=== PATIENT | female | born 1990 | race Caucasian/White ===

== ENCOUNTER 2019-11-22 08:41 | Emergency (ER) | payer SELFPAY ==
[~2019-11-22] VITALS: Ht 172.7 cm; Wt 73.9 kg
[2019-11-22 09:02] VITALS: BP 105/60
--- NOTE | 2019-11-22 09:19 | PHYS DOC ---
Past History Past Medical History: Constipation Past Surgical History: Tubal ligation, Other Additional Past Surgical Histo: skin graft Alcohol Use: None Drug Use: None Adult General Chief Complaint Chief Complaint: CONSTIPATION HPI HPI Patient is a 28 year old F who presents with constipation. She states that she has not had a bowel movement in the last 2 weeks. She has occasional sharp abdominal pain. She had mild nausea this morning without vomiting. She continues to be able to eat and drink however she has had decreased intake of food over the past 24 hours. She has had one similar episode about 8 years ago. She does tend to have less frequent bowel movements than others. She has no other associated symptoms. She has no exasperating or relieving factors. Review of Systems Review of Systems Constitutional: Denies fever or chills [] Eyes: Denies change in visual acuity, redness, or eye pain [] HENT: Denies nasal congestion or sore throat [] Respiratory: Denies cough or shortness of breath [] Cardiovascular: No additional information not addressed in HPI [] GI: Negative except history of present illness : Denies dysuria or hematuria [] Musculoskeletal: Denies back pain or joint pain [] Integument: Denies rash or skin lesions [] Neurologic: Denies headache, focal weakness or sensory changes [] Endocrine: Denies polyuria or polydipsia [] All other systems were reviewed and found to be within normal limits, except as documented in this note. Family History Family History No pertinent family medical history was reported Current Medications Current Medications Current medications were reviewed Allergies Allergies Allergies Coded Allergies Type Severity Reaction Last Updated Verified No Known Drug Allergies 11/22/19 No Physical Exam Physical Exam Constitutional: Well developed, well nourished, no acute distress, non-toxic appearance. [] HENT: Normocephalic, atraumatic, Eyes: PERRLA, EOMI, conjunctiva normal, no discharge. [] Neck: Normal range of motion, no tenderness, supple, no stridor. [] Cardiovascular:Heart rate regular rhythm, Lungs & Thorax: Bilateral breath sounds clear to auscultation [] Abdomen: Bowel sounds normal, soft, no tenderness, no masses, no pulsatile masses. [] Mild distention was noted Skin: Warm, dry, no erythema, no rash. [] Extremities: No tenderness, no cyanosis, no clubbing, ROM intact, no edema. [] Neurologic: Alert and oriented X 3, normal motor function, normal sensory function, no focal deficits noted. [] Psychologic: Affect normal, judgement normal, mood normal. [] Current Patient Data Vital Signs Vital Signs Date Time Temp Pulse Resp B/P (MAP) Pulse Ox O2 Delivery O2 Flow Rate FiO2 11/22/19 09:02 97.8 62 18 100 Room Air EKG EKG [] Radiology/Procedures Radiology/Procedures [] Course & Med Decision Making Course & Med Decision Making Pertinent Labs and Imaging studies reviewed. (See chart for details) [] Dragon Disclaimer Dragon Disclaimer This electronic medical record was generated, in whole or in part, using a voice recognition dictation system. Departure Departure: Impression: Primary Impression: Constipation Disposition: HOME, SELF-CARE Condition: STABLE Referrals: PCPLAURA (PCP) Patient Instructions: Constipation, Adult Additional Instructions: [place] was seen in the emergency department for constipation. No emergency medical condition was found on history physical exam. She is advised to increase her water intake and start MiraLAX hourly 3-4 hours. If she still is not having good bowel movements she was encouraged to consider trying magnesium citrate. She was advised to return to the emergency room if she develops new or worsening symptoms. She was advised follow-up with her primary care doctor as needed for further management. Problem Qualifiers Primary Impression: Constipation Constipation type: slow transit constipation Qualified Codes: K59.01 - Slow transit constipation TABITHA GRAMAJO MD Nov 22, 2019 09:19
== END 2019-11-22 09:24 | disposition home or self-care (01) ==
LOC: ER 08:41
DX: K59.00 Constipation, unspecified (principal); Z98.51 Tubal ligation status
CPT/HCPCS: 99281

== ENCOUNTER 2019-12-08 07:53 | Emergency (ER) | payer OTHER ==
[~2019-12-08] VITALS: Ht 172.7 cm; Wt 72.0 kg
--- NOTE | 2019-12-08 08:25 | PHYS DOC ---
Past History Past Medical History: Constipation Past Surgical History: Tubal ligation, Other Additional Past Surgical Histo: skin graft Alcohol Use: None Drug Use: None Adult General Chief Complaint Chief Complaint: DENTAL PROBLEM HPI HPI Patient is a 28-year-old female who presented to ER today for evaluation of left-sided lower dental pain off and on since October of last year. Patient said about 5 days ago she started having more pain. Patient went to see her dentist yesterday who prescribed her with tramadol, amoxicillin 500 mg 3 times a day. Patient took 3 doses of the amoxicillin already, she woke up this morning with more pain and the left-sided her jaw became more swollen so she came here for evaluation. Patient had been able to open and close her mouth, able to swallow without a problem. Patient denies any fever. All other ROS is negative unless otherwise noted in HPI Review of Systems Review of Systems See above Allergies Allergies Allergies Coded Allergies Type Severity Reaction Last Updated Verified No Known Drug Allergies 11/22/19 No Physical Exam Physical Exam See above Constitutional: Well developed, well nourished, no acute distress, non-toxic appearance. [] HENT: Normocephalic, atraumatic, bilateral external ears normal, oropharynx moist, no oral exudates, nose normal. Left side lower jaw swelling, tender. No trismus. Eyes: PERRLA, EOMI, conjunctiva normal, no discharge. [] Neck: Normal range of motion, no tenderness, supple, no stridor. [] Cardiovascular:Heart rate regular rhythm, no murmur [] Lungs & Thorax: Bilateral breath sounds clear to auscultation [] Abdomen: Bowel sounds normal, soft, no tenderness, no masses, no pulsatile masses. [] Skin: Warm, dry, no erythema, no rash. [] Back: No tenderness, no CVA tenderness. [] Extremities: No tenderness, no cyanosis, no clubbing, ROM intact, no edema. [] Neurologic: Alert and oriented X 3, normal motor function, normal sensory function, no focal deficits noted. [] Psychologic: Affect normal, judgement normal, mood normal. [] Current Patient Data Vital Signs Vital Signs Date Time Temp Pulse Resp B/P (MAP) Pulse Ox O2 Delivery O2 Flow Rate FiO2 12/08/19 08:14 99.1 113 18 118/63 (81) 99 Room Air EKG EKG [] Radiology/Procedures Radiology/Procedures [] Course & Med Decision Making Course & Med Decision Making Pertinent Labs and Imaging studies reviewed. (See chart for details) Patient was given medication in the ER, she felt much better. Patient will be discharged home, she will continue to take her antibiotic, she was instructed to follow with her dentist on Wednesday. Dragon Disclaimer Dragon Disclaimer This electronic medical record was generated, in whole or in part, using a voice recognition dictation system. Departure Departure: Impression: Primary Impression: Abscess, dental Disposition: HOME, SELF-CARE Condition: STABLE Referrals: PCP,NO (PCP) FOLLOW UP WITH YOUR DENTIST FOR REEVALUATION ON WEDNESDAY. CONTINUE TAKING YOUR ANTIBIOTIC PRESCRIBED. Patient Instructions: Dental Abscess Additional Instructions: Thank you for visiting our Emergency Department. We appreciate you trusting us with your care. If any additional problems come up don't hesitate to return to visit us. Please follow up with your primary care provider so they can plan additional care if needed and know about the problem that you had. If symptoms worsen come back to the Emergency Department. Any concerning symptoms that start such as chest pain, shortness of air, weakness or numbness on one side of the body, running high fevers or any other concerning symptoms return to the ER. Scripts Ibuprofen (Ibu) 800 Mg Tablet 1 TAB PO Q8HRS for PAIN for 7 Days, #30 TAB 0 Refills Prov: TABITHA HOWARD DO 12/08/19 Prednisone (PREDNISONE) 20 Mg Tablet 1 TAB PO DAILY for SWELLING, #7 TAB Prov: TABITHA HOWARD DO 12/08/19 TABITHA HOWARD DO Dec 08, 2019 08:25
[2019-12-08] MEDS ORDERED: methylPREDNISolone SOD SUCC PF 125 MG/2 ML VIAL. IV ONE (08:30)
[2019-12-08] MEDS ORDERED: PIPERACILLIN/TAZOBACTAM 3.375 GM in IV NORMAL SALINE 50ML 50 ML IV ONE (08:30)
[2019-12-08] MEDS ORDERED: KETOROLAC 30 MG/ML VIAL. IVP ONE (08:30)
[2019-12-08] MEDS ORDERED: IV NORMAL SALINE 1,000ML 1,000 ML IV ONE (08:30)
[2019-12-08] MEDS ORDERED: diphenhydrAMINE 50 MG/ML VIAL IVP ONE (08:30)
[2019-12-08] MEDS ORDERED: IV NORMAL SALINE 50ML 50 ML ONE (08:38)
[2019-12-08] MEDS ORDERED: PIPERACILLIN/TAZOBACTAM 3.375 GM VIAL IV ONE (08:38)
[2019-12-08] MEDS ORDERED: ONDANSETRON PF 4 MG/2 ML VIAL. IVP ONE (08:45)
[2019-12-08 10:20] VITALS: BP 97/49
[2019-12-08] MEDS ORDERED: PRED20TA PO (10:27)
[2019-12-08] MEDS ORDERED: IBUP-577 PO (10:27)
== END 2019-12-08 10:34 | disposition home or self-care (01) ==
LOC: ER 07:53
DX: K04.7 Periapical abscess without sinus (principal)
CPT/HCPCS: 96365; 96366; 96375; 99284; J1200; J1885; J2405; J2543; J2930; J7030

== ENCOUNTER 2020-11-14 12:53 | Emergency (ER) | payer OTHER ==
[~2020-11-14] VITALS: Ht 172.7 cm; Wt 83.2 kg
[~2020-11-14 12:53] MED LIST: IBUP-577 PO; PRED20TA PO
--- NOTE | 2020-11-14 13:26 | PHYS DOC ---
Past History Past Medical History: Constipation Past Surgical History: Tubal ligation, Other Additional Past Surgical Histo: skin graft Alcohol Use: None Drug Use: None General Adult EDM: Chief Complaint: RIGHT THIGH TINGLING HPI: HPI: 29-year-old female presenting the emergency department today with tingling in the right side that started 2 hours ago. Last known well 2 hours ago. She intermittently has had tingling sensation in her left thigh and right thigh over the past few months. Today will she was working she felt this and came in for evaluation. She denies any muscular weakness. She denies slurred speech or facial drooping. She denies diplopia. She denies chest pain shortness of breath or abdominal pain. No alleviating or exacerbating factors Review of systems negative for abdominal pain vomiting fevers chills. All other review of systems negative. ED course: 29-year-old female presenting with right-sided thigh tingling. Code stroke called at the time of evaluation. Head CT along with head and neck angiography ordered. I spoke with Dr. Preciado our stroke neurologist who recommends not giving TPA. Low NIH stroke scale. Patient symptoms are unlikely to be from an ischemic stroke. I had a long risk-benefit analysis with the patient and discussion using shared decision making about the giving of TPA. I sat down with the patient with a risk/benefits with the pt and documented the shared decision making on AMA form. I spoke with Dr. Preciado about the patient. He recommends seeing the patient in his clinic. He has an opening. Blood works unremarkable head CT negative. CT angiogram negative. We will discharge the patient to see our neurologist in clinic immediately after discharge. Dr. Preciado is awaiting the pt in clinic. NIH Stroke Scale: Level of consciousness 0 Level of consciousness questions 0 Best gaze 0 Visual satna 0 Facial palsy 0 Left motor arm 0 Right motor arm 0 Left motor leg 0 Right motor leg 0 Limb ataxia 0 Sensory 1 Best language 0 Dysarthria 0 Extension and inattention 0 Total score: 1 Non disabling Allergies: Allergies: Allergies Coded Allergies Type Severity Reaction Last Updated Verified No Known Drug Allergies 11/22/19 No Physical Exam: PE: Constitutional: Well developed, well nourished, no acute distress, non-toxic appearance. [] HENT: Normocephalic, atraumatic, bilateral external ears normal, oropharynx moist, no oral exudates, nose normal. [] Eyes: PERRLA, EOMI, conjunctiva normal, no discharge. [] Neck: Normal range of motion, no tenderness, supple, no stridor. [] Cardiovascular:Heart rate regular rhythm, no murmur [] Lungs & Thorax: Bilateral breath sounds clear to auscultation [] Abdomen: Bowel sounds normal, soft, no tenderness, no masses, no pulsatile masses. [] Skin: Warm, dry, no erythema, no rash. [] Back: No tenderness, no CVA tenderness. [] Extremities: No tenderness, no cyanosis, no clubbing, ROM intact, no edema. [] Neurologic: Mental status: Awake oriented and alert x3 Cranial nerves: Extraocular movements intact, eyebrows fabiana bilaterally, smile symmetric, uvula elevation nl, shoulder shrug intact bilaterally, tongue protrusion normal DTRs: 2+ Sensation: Patient can feel equally in the upper extremities. The lower extremities the patient has sensation throughout including the places where she feels the tingling but it feels different in the right thigh than in the left. Strength: 5/5 in upper and lower extremities bilaterally No pronator drift. Normal [id number]. Psychologic: Affect normal, judgement normal, mood normal. [] EKG: EKG: [] Radiology/Procedures: Radiology/Procedures: [] Heart Score: Risk Factors: Risk Factors: DM, Current or recent (<one month) smoker, HTN, HLP, family history of CAD, obesity. Risk Scores: Score 0 - 3: 2.5% MACE over next 6 weeks - Discharge Home Score 4 - 6: 20.3% MACE over next 6 weeks - Admit for Clinical Observation Score 7 - 10: 72.7% MACE over next 6 weeks - Early Invasive Strategies Course & Med Decision Making: Course & Med Decision Making Pertinent Labs and Imaging studies reviewed. (See chart for details) [] Dragon Disclaimer: Dragon Disclaimer: This electronic medical record was generated, in whole or in part, using a voice recognition dictation system. Departure Departure: Impression: Primary Impression: Numbness and tingling of leg Disposition: 01 DC HOME SELF CARE/HOMELESS Condition: STABLE Referrals: PCP,NO (PCP) DAY PRECIADO MD, AUSTIN L MD Nov 14, 2020 13:26
[2020-11-14] MEDS ORDERED: IOHEXOL 350 MG/ML 100 ML VIAL. IV ONE (13:30)
--- NOTE | 2020-11-14 13:36 | RAD ---
PQRS Compliance Statement: One or more of the following individualized dose reduction techniques were utilized for this examinat ion: 1. Automated exposure control 2. Adjustment of the mA and/or kV according to patient size 3. Use of iterative reconstruction technique CT head without contrast 11/14/2020 1:27 PM INDICATION: Leg numbness COMPARISON: None available TECHNIQUE: Multiple axial CT images of the head were obtained from skull base through the vertex with out intravenous contrast. FINDINGS: Head: Ventricles, sulci and basal cisterns are within normal limits. There is no hydrocephalus. Stratton-white matter differentiation is normal. There is no acute intracranial hemorrhage. There is no mass, mass e ffect or midline shift. Posterior fossa is normal in appearance. Visualized portions of the orbits are normal. Paranasal sinuses are well aerated. Mastoid air cells a re well aerated. Scalp and calvaria are normal. IMPRESSION: No acute intracranial hemorrhage. FOR INTERNAL CODING PURPOSES Critical result: Findings discussed with Dr. Booth at 11/14/2020 1:33 PM. RESULT CODE: (C) Electronically signed by: Maddie Lockhart MD (11/14/2020 1:34 PM) [id number]
[2020-11-14] MEDS ORDERED: CONTRAST GIVEN. MC PRN (13:45)
[2020-11-14 13:55] LABS: HEMATOCRIT 35.6 % (36.0-47.0); HEMOGLOBIN 11.6 g/dL (12.0-15.5); RED BLOOD COUNT 4.4 x10^6/uL (3.50-5.40); RED CELL DISTRIBUTION WIDTH 13.9 % (11.5-14.5); WHITE BLOOD COUNT 5.6 x10^3/uL (4.0-11.0)
[2020-11-14 14:16] LABS: CALCIUM 8.6 mg/dL (8.5-10.1); CREATININE 0.8 mg/dL (0.6-1.0); GFR 83.7
[2020-11-14 14:22] LABS: PREG TEST PT QUAL NEGATIVE (NEG)
[2020-11-14 14:28] LABS: POTASSIUM 3.3 mmol/L (3.5-5.1)
--- NOTE | 2020-11-14 14:29 | RAD ---
EXAM: CTA HEAD AND NECK W/WO CONTRAST DATE: 11/14/2020 1:38 PM INDICATION: leg numbness TECHNIQUE: CTA angiogram of the head and neck was obtained after IV bolus administration of 100 cc of Omnipaque 350. The images were sent to workstation and multiplanar reconstructions were obtained. M ultiplanar reconstruction images to include MIP and 3-D reconstruction images are submitted. One or more of the following dose reduction techniques were utilized: Automated exposure control (AEC ), Adjustment of mA and/or kV according to patient size, Use of iterative reconstruction technique mahoney ch as ASiR, CT scan done according to ALARA and image gently/image wisely COMPARISON: Noncontrast CT head done previously today. FINDINGS: CTA Head: The visualized distal internal carotid arteries, anterior and middle cerebral arteries are patent and normal caliber. The distal vertebral arteries, basilar artery, and posterior cerebral arteries are p atent and normal caliber. No aneurysm or arteriovenous malformation is seen. CTA Neck: Right carotid: The right common carotid artery is patent and normal caliber. The carotid bifurcation is normal. No stenosis of the right internal carotid artery per NASCET criteria. The right external c arotid artery is patent. Left carotid: The left common carotid artery is patent and normal caliber. The carotid bifurcation is normal. No stenosis of the left internal carotid artery per NASCET criteria. The left external carot id artery is patent. Right vertebral: The right vertebral artery is patent and normal caliber. Left vertebral: The left vertebral artery is patent and normal caliber. The visualized portions of the aortic arch are normal. The origins of the brachiocephalic and subclav caio arteries are normal. No cervical lymphadenopathy. The thyroid gland is normal. The parotid and submandibular glands are no rmal. The visualized aerodigestive tract is unremarkable. The cervical spine is normal. The visualized portions of the lungs are clear. IMPRESSION: 1. No intracranial large vessel occlusion. 2. No stenosis or dissection of the cervical carotid or vertebral arteries. PQRS Compliance Statement - Stenosis calculations for CT, MR and conventional angiography are based u alex measurement of the distal ICA diameter in accordance with the NASCET methodology. Electronically signed by: Evans Ly MD (11/14/2020 2:27 PM) [id number]
--- NOTE | 2020-11-14 14:30 | RAD ---
EXAM: CHEST 1 VIEW History: Covid COMPARISON: None available. TECHNIQUE: Single portable radiograph of the chest FINDINGS: The cardiac silhouette is unremarkable. The lungs are clear bilaterally. The costophrenic sulci are clear and well demarcated. IMPRESSION: No radiographic evidence of an acute cardiopulmonary process. Electronically signed by: Sb Menard MD (11/14/2020 2:27 PM) [id number]
[2020-11-14 16:57] VITALS: BP 134/68
== END 2020-11-14 14:46 | disposition home or self-care (01) ==
LOC: ER 12:53
DX: R20.2 Paresthesia of skin (principal)
CPT/HCPCS: 36415; 70450; 70496; 70498; 71045; 80048; 82947; 84484; 84703; 85027; 85610; 85730; 99285; Q9967

== ENCOUNTER 2021-04-03 13:46 | Emergency (ER) | payer OTHER ==
[~2021-04-03] VITALS: Ht 172.7 cm; Wt 81.2 kg
--- NOTE | 2021-04-03 14:27 | PHYS DOC ---
Past History Past Medical History: No Pertinent History Past Surgical History: Tubal ligation, Other Additional Past Surgical Histo: skin graft Alcohol Use: None Drug Use: None Adult General Chief Complaint Chief Complaint: ABDOMINAL PAIN HPI HPI Patient is a 30-year-old female presenting via POV for abdominal pain. Onset was x4 days ago without any known inciting event, ingestion or trauma. Nothing known makes better, certain positional movements and palpating right adnexal area make worse. Patient reports dull cramping pain that does not migrate, is currently 6/10 in severity. She is , has history of bilateral tubal ligation during of her last child, all children are healthy without significant medical issues. No fever, recent illness, chest pain, shortness of breath, dysuria or other concerning symptoms Review of Systems Review of Systems Fourteen body systems of review of systems have been reviewed. See HPI for pertinent positives and negative responses, other curiel all other systems are negative, non-pertinent or non-contributory Allergies Allergies Allergies Coded Allergies Type Severity Reaction Last Updated Verified No Known Drug Allergies 11/22/19 No Physical Exam Physical Exam Constitutional: Well developed, well nourished, no acute distress, non-toxic appearance. HENT: Normocephalic, atraumatic, bilateral external ears normal, oropharynx moist, no oral exudates, nose normal. Eyes: PERRLA, EOMI, conjunctiva normal, no discharge. Neck: Normal range of motion, no tenderness, supple, no stridor. Cardiovascular: Heart rate regular, sinus rhythm, no murmurs rubs or gallops Lungs & Thorax: Bilateral breath sounds clear to auscultation Abdomen: Bowel sounds normal, soft, no tenderness, no masses, no pulsatile masses. Nonsurgical abdomen, no peritoneal signs Skin: Warm, dry, no erythema, no rash. Back: No tenderness, no CVA tenderness. Extremities: No tenderness, no cyanosis, no clubbing, ROM intact, no edema. Neurologic: Alert and oriented X 3, grossly normal motor & sensory function, no focal deficits noted. Psychologic: Affect normal, judgement normal, mood normal. Current Patient Data Vital Signs Vital Signs Date Time Temp Pulse Resp B/P (MAP) Pulse Ox O2 Delivery O2 Flow Rate FiO2 04/03/21 13:57 98.1 85 16 126/84 (98) 98 Room Air Lab Results Laboratory Tests Test 04/03/21 14:09 04/03/21 14:15 Urine Collection Type Unknown Urine Color Yellow Urine Clarity Hazy Urine pH 5.5 Urine Specific [place] >=1.030 Urine Protein Neg Urine Glucose (UA) Neg mg/dL Urine Ketones (Stick) Neg mg/dL Urine Blood Mod Urine Nitrite Neg Urine Bilirubin Neg Urine Urobilinogen Dipstick 0.2 mg/dL Urine Leukocyte Esterase Neg Urine RBC 1-2 /HPF Urine WBC 1-4 /HPF Urine Squamous Epithelial Cells Few /LPF Urine Bacteria Few /HPF Bedside Urine HCG, Qualitative hcg negative EKG EKG [] Radiology/Procedures Radiology/Procedures Pelvic ultrasound dated 04/03/2021. No comparison available. CLINICAL INDICATION: Pain. FINDINGS: Transabdominal and transvaginal imaging performed. Uterus measures 10.0 x 5.4 x 5.5 cm. No focal uterine mass. The endometrium is normal thickness and 1.1 cm. Right ovary measures 3.8 x 3.2 x 1.9 cm. Left ovary measures 2.8 x 2.4 x 1.9 cm. Normal color flow to both ovaries. No adnexal mass or free fluid. IMPRESSION: Negative pelvic ultrasound. Electronically signed by: Mahamed Valdez MD (04/03/2021 3:37 PM) [facility] ///////////////// CT ABDOMEN+PELVIS W History: rt flank pain, rlq pain Comparison: None. Technique: After administration of intravenous contrast, helical CT of the abdomen and pelvis was performed from the lung bases through the ischial tuberosities. Coronal and sagittal reconstructions were obtained. 75 mL of the 350 were used. One or more of the following dose reduction techniques were utilized: Automated exposure control (AEC), Adjustment of mA and/or kV according to patient size, Use of iterative reconstruction technique such as ASiR, CT scan done according to ALARA and image gently/image wisely Abdomen Findings: The visualized lung bases are clear. The liver, gallbladder, pancreas, spleen, and bilateral adrenal glands are normal. Symmetric renal enhancement. There is no focal renal mass. There is no hydronephrosis. The visualized loops of small bowel are normal. The visualized loops of large bowel are normal. There is no evidence of bowel obstruction. Appendix is normal. There is no free fluid. There is no mesenteric or retroperitoneal adenopathy. The abdominal aorta is normal in caliber. Pelvis Findings: Urinary bladder is decompressed. Uterus is present. No pelvic free fluid. There is no pelvic or inguinal adenopathy. There is no acute bony abnormality. IMPRESSION: No acute findings. No hydronephrosis or opaque urinary calculi. Normal appendix. Electronically signed by: Evans Ly MD (04/03/2021 4:23 PM) [facility] ////////////////////////////////// CT ABDOMEN+PELVIS W History: rt flank pain, rlq pain Comparison: None. Technique: After administration of intravenous contrast, helical CT of the abdomen and pelvis was performed from the lung bases through the ischial tuberosities. Coronal and sagittal reconstructions were obtained. 75 mL of the 350 were used. One or more of the following dose reduction techniques were utilized: Automated exposure control (AEC), Adjustment of mA and/or kV according to patient size, Use of iterative reconstruction technique such as ASiR, CT scan done according to ALARA and image gently/image wisely Abdomen Findings: The visualized lung bases are clear. The liver, gallbladder, pancreas, spleen, and bilateral adrenal glands are normal. Symmetric renal enhancement. There is no focal renal mass. There is no hydronephrosis. The visualized loops of small bowel are normal. The visualized loops of large bowel are normal. There is no evidence of bowel obstruction. Appendix is normal. There is no free fluid. There is no mesenteric or retroperitoneal adenopathy. The abdominal aorta is normal in caliber. Pelvis Findings: Urinary bladder is decompressed. Uterus is present. No pelvic free fluid. There is no pelvic or inguinal adenopathy. There is no acute bony abnormality. IMPRESSION: No acute findings. No hydronephrosis or opaque urinary calculi. Normal appendix. Electronically signed by: Evans Ly MD (04/03/2021 4:23 PM) [facility] Heart Score C/O Chest Pain: No Risk Factors: Risk Factors: DM, Current or recent (<one month) smoker, HTN, HLP, family history of CAD, obesity. Risk Scores: Risk Factors: DM, Current or recent (<one month) smoker, HTN, HLP, family history of CAD, obesity. Course & Med Decision Making Course & Med Decision Making Pertinent Labs and Imaging studies reviewed. (See chart for details) [] Dragon Disclaimer Dragon Disclaimer This electronic medical record was generated, in whole or in part, using a voice recognition dictation system. Departure Departure: Impression: Primary Impression: Nonspecific abdominal pain Disposition: HOME / SELF CARE / HOMELESS Condition: IMPROVED Referrals: PCP,LAURA (PCP) Patient Instructions: Abdominal Pain (Nonspecific) Additional Instructions: You have been evaluated in the Emergency Department today for abdominal pain. Your evaluation was not suggestive of any emergent condition requiring medical intervention at this time. However, some abdominal problems make take more time to appear. Therefore, it is important for you to watch for any new symptoms or worsening of your current condition. As discussed, you need to call your primary care physician first thing in the morning to review ER visit today And discuss need for close outpatient follow- up. If any concerning signs or symptoms present prior to ER follow-up present here immediately for repeat evaluation Return to the Emergency Department if you experience worsening pain, persistent fevers greater than 100.4, recurrent vomiting, blood in vomit, blood in stool, dark tarry stool, chest pain, difficulty breathing, or any other concerning symptoms. JIM RING DO Apr 03, 2021 14:27
[2021-04-03 15:13] LABS: BILIRUBIN,URINE NEG (NEG); CLARITY,URINE HAZY; COLOR,URINE YELLOW; GLUCOSE,URINE NEG (NEG); NITRITE,URINE NEG (NEG); UROBILINOGEN,URINE 0.2 mg/dL (0.2 mg/dL)
[2021-04-03 15:15] LABS: BACTERIA,URINE FEW /HPF (0-FEW); SQUAMOUS EPITHELIAL CELL,UR FEW /LPF
--- NOTE | 2021-04-03 15:39 | RAD ---
Pelvic ultrasound dated 04/03/2021. No comparison available. CLINICAL INDICATION: Pain. FINDINGS: Transabdominal and transvaginal imaging performed. Uterus measures 10.0 x 5.4 x 5.5 cm. No focal uter ine mass. The endometrium is normal thickness and 1.1 cm. Right ovary measures 3.8 x 3.2 x 1.9 cm. Left ovary measures 2.8 x 2.4 x 1.9 cm. Normal color flow to both ovaries. No adnexal mass or free fluid. IMPRESSION: Negative pelvic ultrasound. Electronically signed by: Mahamed Valdez MD (04/03/2021 3:37 PM) [facility]
[2021-04-03] MEDS: IOHEXOL 300 MG/ML 75 ML VIAL. IV ONE (16:03)
[2021-04-03] MEDS: IV NORMAL SALINE 1,000ML 1,000 ML IV ONE (16:14)
--- NOTE | 2021-04-03 16:25 | RAD ---
CT ABDOMEN+PELVIS W History: rt flank pain, rlq pain Comparison: None. Technique: After administration of intravenous contrast, helical CT of the abdomen and pelvis was per formed from the lung bases through the ischial tuberosities. Coronal and sagittal reconstructions wer e obtained. 75 mL of the 350 were used. One or more of the following dose reduction techniques were u tilized: Automated exposure control (AEC), Adjustment of mA and/or kV according to patient size, Use of iterative reconstruction technique such as ASiR, CT scan done according to ALARA and image gently/ image wisely Abdomen Findings: The visualized lung bases are clear. The liver, gallbladder, pancreas, spleen, and bilateral adrenal glands are normal. Symmetric renal enhancement. There is no focal renal mass. There is no hydronephrosis. The visualized loops of small bowel are normal. The visualized loops of large bowel are normal. There is no evidence of bowel obstruction. Appendix is normal. There is no free fluid. There is no mesenteric or retroperitoneal adenopathy. The abdominal aorta is normal in caliber. Pelvis Findings: Urinary bladder is decompressed. Uterus is present. No pelvic free fluid. There is no pelvic or ingui nal adenopathy. There is no acute bony abnormality. IMPRESSION: No acute findings. No hydronephrosis or opaque urinary calculi. Normal appendix. Electronically signed by: Evans Ly MD (04/03/2021 4:23 PM) [facility]
[2021-04-03 16:27] LABS: BASO # 0.1 x10^3/uL (0.0-0.2); BASO % 1 % (0-3); EOS # 0.2 x10^3/uL (0.0-0.7); EOS % 4 % (0-3); HEMATOCRIT 34.7 % (36.0-47.0); HEMOGLOBIN 11.2 g/dL (12.0-15.5); LYMPH # 1.3 x10^3/uL (1.0-4.8); LYMPH % 20 % (24-48); MEAN CORPUSCULAR HEMOGLOBIN 26 pg (25-35); MEAN CORPUSCULAR HGB CONC 32 g/dL (31-37); MEAN CORPUSCULAR VOLUME 82 fL (79-100); MONO # 0.3 x10^3/uL (0.0-1.1); MONO % 5 % (0-9); NEUT # 4.6 x10^3uL (1.8-7.7); NEUT % 71 % (31-73); PLATELET COUNT 293 x10^3/uL (140-400); RED BLOOD COUNT 4.25 x10^6/uL (3.50-5.40); RED CELL DISTRIBUTION WIDTH 15.1 % (11.5-14.5); WHITE BLOOD COUNT 6.5 x10^3/uL (4.0-11.0)
[2021-04-03 16:38] VITALS: BP 121/62
[2021-04-03 16:38] LABS: CALCIUM 8.8 mg/dL (8.5-10.1); CREATININE 0.9 mg/dL (0.6-1.0); GFR 72.6; POTASSIUM 3.5 mmol/L (3.5-5.1)
== END 2021-04-03 16:52 | disposition home or self-care (01) ==
LOC: ER 13:46
DX: R10.9 Unspecified abdominal pain (principal); Z98.51 Tubal ligation status
CPT/HCPCS: 36415; 74177; 76830; 76856; 80048; 81001; 81025; 85025; 96361; 96374; 99285; J3010; J7030; Q9967